=== PATIENT | male | born 1980 | race Caucasian/White ===

== ENCOUNTER 2021-12-24 22:04 | Emergency (ER) | payer OTHER ==
[2021-12-24 22:24] LABS: BASOPHIL 0.6 % (0-2); EOSINOPHIL 1.7 % (0-5); HCT 41.2 % (42.0-52.0); HGB 14.6 g/dl (13.2-18.0); LYMPHOCYTE 42.8 % (15-48); MCH 33.4 pg (25.0-31.0); MCHC 35.4 g/dL (32.0-36.0); MCV 94.3 fL (78.0-100.0); MONOCYTE 13.4 % (0-12); MPV 9.7 fL (6.0-9.5); NEUTROPHIL 41.3 % (41-80); NRBC 0; PLT 218 K/uL (150-400); RBC 4.37 M/uL (4.70-6.00); RDW 11.7 % (11.5-14.0); WBC 6.5 K/uL (4.0-10.5)
[2021-12-24 22:36] LABS: INR 0.99 (0.9-1.2); PROTHROMBIN TIME 12.8 SECONDS (11.9-13.9); PTT 21.8 SECONDS (24.9-34.6)
[2021-12-24 22:37] LABS: D-DIMER < 0.27 ug/mLFEU (0.00-0.41)
[2021-12-24 22:44] LABS: ALBUMIN 4.2 g/dL (3.4-5.0); BILIRUBIN - TOTAL 0.4 mg/dL (0.2-1.0); BUN/CREAT RATIO (CALC) 8.5 RATIO; CREATININE 0.71 mg/dL (0.67-1.17); GLOBULIN (CALCULATION) 3.5 g/dL; POTASSIUM 2.8 mmol/L (3.5-5.1); TOTAL PROTEIN 7.7 g/dL (6.4-8.2)
[2021-12-24 23:42] LABS: MAGNESIUM 1.3 mg/dL (1.8-2.4); PHOSPHORUS 2.9 mg/dL (2.6-4.7)
[2021-12-24 23:55] LABS: INFLUENZA A NAA NEGATIVE (NEGATIVE)
[2021-12-24 23:59] LABS: CORONAVIRUS 2019 SARS-COV-2 POSITIVE (NEGATIVE)
[2021-12-25] MEDS ORDERED: PAXLOVID 300-11 EACH PO (00:58)
[2021-12-25] MEDS ORDERED: ONDANSETRON ODT4 MG PO (00:58)
== END 2021-12-25 01:40 | disposition home or self-care (01) ==
LOC: FER 22:04
PROVIDERS: Emergency Medicine
DX: U07.1 COVID-19 (principal); R07.89 Other chest pain; I10 Essential (primary) hypertension; E11.9 Type 2 diabetes mellitus without complications; Z79.84 Long term (current) use of oral hypoglycemic drugs; Z79.899 Other long term (current) drug therapy
CPT/HCPCS: 36415; 71045; 80053; 83735; 84100; 84484; 85025; 85379; 85610; 85730; 93005; G0480; J7030; U0002